=== PATIENT | male | born 1960 | race African-American/Black ===

== ENCOUNTER 2017-05-14 19:07 | Emergency (ER) | payer OTHER ==
--- NOTE | 2017-05-14 19:44 | PDOC ---
Rapid Medical Evaluation Time Seen by Provider: 05/14/17 19:42 Medical Evaluation: 05/14/17 19:42 I have performed a brief in-person evaluation of this patient. The patient presents with a chief complaint of: pain to right lower back x 1 week. Patient reports pain x months worse in the past week. States had mri done today, has disc. and was treated by doctor with pain medication. States pain radiates from right lower back to ankle. Pertinent physical exam findings: NAD unlabored breathing walks with a cane no mid spinal tenderness I have ordered the following: analgesia The patient will proceed to the ED for further evaluation.
[2017-05-14 19:47] VITALS: BP 153/96; PULSE 110; TEMP 98.6; BMI 23.3
[2017-05-14] MEDS ORDERED: KETOROLAC TROMETHAMINE 30 MG/1 ML VIAL IM ONE (19:48)
[2017-05-14] MEDS ORDERED: CYCLOBENZAPRINE HCL 10 MG TABLET (FP) PO ONE (19:48)
[2017-05-14] MEDS ORDERED: traMADol HCL 50 MG TABLET PO ONE (20:06)
[2017-05-14] MEDS ORDERED: traMADol HCL 50 MG TABLET ONE (20:07)
[2017-05-14] MEDS ORDERED: KETOROLAC TROMETHAMINE 60 MG/2 ML VIAL IM ONE (20:07)
[2017-05-14] MEDS ORDERED: KETOROLAC TROMETHAMINE 60 MG/2 ML VIAL ONE (20:07)
[2017-05-14] MEDS ORDERED: CYCLOBENZAPRINE HCL 10 MG TABLET (FP) ONE (20:08)
--- NOTE | 2017-05-14 20:15 | PDOC ---
History of Present Illness - General Chief Complaint: Back Pain Stated Complaint: PAIN, ACUTE Time Seen by Provider: 05/14/17 19:42 History Source: Patient - History of Present Illness Occurred: reports: other Pain Location: reports: back Past History - Past Medical History Allergies/Adverse Reactions: Allergies Allergy/AdvReac Type Severity Reaction Status Date / Time No Known Allergies Allergy Verified 05/14/17 19:44 Home Medications: Ambulatory Orders Tramadol HCl 50 mg PO Q6H #12 tablet MDD 200 mg 05/14/17 - Suicide/Smoking/Psychosocial Hx Smoking History: Current some day smoker Number of Cigarettes Smoked Daily: 10 Information on smoking cessation initiated: No Review of Systems - Review of Systems Musculoskeletal: Yes: Back Pain. No: Muscle Weakness Neurological: No: Numbness, Tingling, Weakness *Physical Exam - Vital Signs Last Vital Signs Temp Pulse Resp BP Pulse Ox 98.6 F 110 H 20 153/96 99 05/14/17 19:44 05/14/17 19:44 05/14/17 19:44 05/14/17 19:44 05/14/17 19:44 - Physical Exam General Appearance: Yes: Appropriately Dressed. No: Apparent Distress HEENT: positive: Normal Voice Neck: positive: Supple Respiratory/Chest: negative: Respiratory Distress Musculoskeletal: negative: CVA Tenderness, Vertebral Tenderness Extremity: positive: Normal Inspection Integumentary: positive: Dry, Warm Neurologic: positive: Fully Oriented, Alert, Normal Mood/Affect, Motor Strength 5/5, Other (neg SLR) Medical Decision Making - Medical Decision Making 05/14/17 20:10 56-year-old male history of diabetes, hypertension, chronic lower back pain with possible right-sided sciatica, here with gradual worsening of his pain over the past month or two. Pain located mostly to right lower back and radiates to right foot which is not new for patient. No new sensory changes, lower extremity weakness, bowel or bladder incontinence or saddle anesthesia. States he stopped f/u with old pain management doc December of this year because doctor injected him with steroids and "hit a nerve". Was on morphine and Percocet in the past but currently has no pain meds at home. States he had an MRI of his lower back many years ago, but does not remember results. Now has appt with a new pain doctor at [facility] next week and had a lumbar MRI this afternoon, does not yet know results. Patient well-appearing in ED and ambulatory with cane. No red flags at this time, i.e. cauda equina. Will dc with pain control until patient can be seen by new pain doctor next week *DC/Admit/Observation/Transfer Diagnosis at time of Disposition: Chronic back pain Qualifiers: Back pain location: low back pain Back pain laterality: unspecified Sciatica presence: with sciatica Sciatica laterality: sciatica of right side Qualified Code(s): M54.41 - Lumbago with sciatica, right side; G89.29 - Other chronic pain ; G89.29 - Other chronic pain - Discharge Dispostion Condition at time of disposition: Improved - Prescriptions Prescriptions: Tramadol HCl 50 mg PO Q6H #12 tablet MDD 200 mg - Referrals Referrals: Elías Harris [Primary Care Provider] - - Patient Instructions Printed Discharge Instructions: DI for Low Back Pain Additional Instructions: Take medication as prescribed and follow-up with your pain doctor next week as already scheduled - Post Discharge Activity
== END 2017-05-14 20:16 | disposition home or self-care (01) ==
LOC: JER 19:07
PROC: 3E0233Z Introduction of Anti-inflammatory into Muscle, Percutaneous Approach (ICD-10-PCS; principal; 2017-05-14)
DX: M54.41 Lumbago with sciatica, right side (principal); I10 Essential (primary) hypertension; E11.9 Type 2 diabetes mellitus without complications
CPT/HCPCS: 96372; 99281-25

== ENCOUNTER 2020-11-15 07:43 | Emergency (ER) | payer OTHER ==
[2020-11-15 08:27] VITALS: TEMP 98.5; BMI 22.9
[2020-11-15 08:59] LABS: BASO % 0.5 % (0-2.0); EOS % 1.1 % (0-4.5); HEMATOCRIT 43.6 % (35.4-49); HEMOGLOBIN 14.4 GM/dL (11.7-16.9); LYMPH % 12.9 % (8-40); MCH 31.1 pg (25.7-33.7); MCHC 32.9 g/dl (32.0-35.9); MEAN CELL VOLUME 94.4 fl (80-96); MEAN PLT VOLUME 6.3 fl (7.5-11.1); MONO % 7.5 % (3.8-10.2); PLATELET COUNT 249 10^3/uL (134-434); RBC 4.62 M/mm3 (4.00-5.60); RDW 14.5 % (11.9-15.9); WHITE BLOOD COUNT 7.9 K/mm3 (4.0-10.0)
[2020-11-15 09:18] LABS: CALCIUM 9.6 mg/dL (8.5-10.1)
[2020-11-15 09:19] LABS: BLOOD UREA NITROGEN 11.1 mg/dL (7-18)
[2020-11-15 09:22] LABS: CREATININE 1.1 mg/dL (0.55-1.3)
[2020-11-15 09:23] LABS: BILIRUBIN,TOTAL 0.9 mg/dL (0.2-1); TOT PROT 6.9 g/dl (6.4-8.2)
[2020-11-15] MEDS ORDERED: SODIUM CHLORIDE 1,000 ML IV STA (09:47)
[2020-11-15 10:17] LABS: EPI CELLS 11 /uL (0-25.1); HYALINE CASTS 1 /uL (0-3.1); URINE APPEARANCE CLEAR; URINE BACTERIA 29 /uL (0-1359); URINE BILIRUBIN NEGATIVE (NEGATIVE); URINE COLOR YELLOW; URINE GLUCOSE (UA) 1+ (NEGATIVE); URINE KETONE TRACE (NEGATIVE); URINE LEUK ESTERASE TRACE (NEGATIVE); URINE NITRITE NEGATIVE (NEGATIVE); URINE PROTEIN NEGATIVE (NEGATIVE); URINE RBC 3177 /uL (0-23.9); URINE WBC 29 /uL (0-25.8)
[2020-11-15 12:40] VITALS: BP 135/96; PULSE 83
== END 2020-11-15 14:00 | disposition home or self-care (01) ==
LOC: JER 07:43
PROC: 3E0337Z Introduction of Electrolytic and Water Balance Substance into Peripheral Vein, Percutaneous Approach (ICD-10-PCS; principal; 2020-11-15)
DX: R31.9 Hematuria, unspecified (principal)
CPT/HCPCS: 36415; 74178-TC; 80053; 81003; 85025; 86850; 86900; 86901; 87086; 99284-25; Q9967

== ENCOUNTER 2023-02-09 14:37 | Emergency (ER) | payer OTHER ==
[2023-02-09 14:47] VITALS: BP 110/69; PULSE 72; RESP 18; TEMP 98.2; BMI 21.6
[2023-02-09] MEDS ORDERED: ACETAMINOPHEN 325 MG TABLET (FP) PO ONE (15:22)
[2023-02-09] MEDS ORDERED: ACETAMINOPHEN 500 MG TABLET (FP) ONE (15:26)
[2023-02-09] MEDS ORDERED: SULFAMETHOXAZOLE/TRIMETHOPRIM 800MG/160MG D.S. TABLET PO ONE (16:09)
[2023-02-09] MEDS ORDERED: SULFAMETHOXAZOLE/TRIMETHOPRIM 800MG/160MG D.S. TABLET ONE (16:12)
== END 2023-02-09 16:14 | disposition home or self-care (01) ==
LOC: JER 14:37 → JERFT 14:37
PROC: 0S990ZZ Drainage of Right Hip Joint, Open Approach (ICD-10-PCS; principal; 2023-02-09)
DX: M71.051 Abscess of bursa, right hip (principal); M25.561 Pain in right knee; M17.11 Unilateral primary osteoarthritis, right knee
CPT/HCPCS: 73562-TC-RT-FY; 99283-25

== ENCOUNTER 2023-05-19 14:36 | Emergency (ER) | payer OTHER ==
[2023-05-19 14:44] VITALS: BP 139/92; PULSE 92; RESP 18; TEMP 97.7; BMI 21.6
[2023-05-19] MEDS ORDERED: SODIUM CHLORIDE FOR INHALATION 3 ML VIAL.NEB IH ONE (15:45)
[2023-05-19] MEDS ORDERED: ALBUTEROL SO4 2.5/IPRATROPIUM 0.5 INH SOL 3 ML VIAL.NEB. NEB ONE ×2 (16:00→16:03)
[2023-05-19] MEDS ORDERED: ACETAMINOPHEN 500 MG TABLET (FP) PO ONE (17:39)
[2023-05-19] MEDS ORDERED: ACETAMINOPHEN 500 MG TABLET (FP) ONE (17:40)
== END 2023-05-19 17:55 | disposition home or self-care (01) ==
LOC: JER 14:36
PROC: 3E0F7GC Introduction of Other Therapeutic Substance into Respiratory Tract, Via Natural or Artificial Opening (ICD-10-PCS; principal; 2023-05-19)
DX: R05.9 Cough, unspecified (principal); R53.81 Other malaise; M79.10 Myalgia, unspecified site; J20.5 Acute bronchitis due to respiratory syncytial virus; Z20.822 Contact with and (suspected) exposure to COVID-19
CPT/HCPCS: 0241U-QW; 71046-TC-FY; 99284-25